=== PATIENT | female | born 1965 | race Caucasian/White ===

== ENCOUNTER 2023-06-08 10:14 | Emergency (ER) | payer BC, SELFPAY ==
[2023-06-08 10:29] VITALS: BP 124/78
[2023-06-08 11:57] VITALS: BMI 29.3
--- NOTE | 2023-06-08 12:03 | ED.GENMED ---
History of Present Illness
General
Chief Complaint: Ear Problem
Source: patient
Time Seen by Provider: 06/08/23 11:54
Travel History
Have you had any contact with someone who has COVID-19?: No
Do you have any symptoms of coronavirus? Fever > 100 degrees, chills, cough, shortness of breath, sore throat, loss of taste or smell, muscle aches, or headache?: No
History of Present Illness
History of Present Illness:
57-year-old female with past medical history of celiac disease presenting emergency department for evaluation of upper respiratory symptoms, sinus congestion, bilateral otalgia x 3 days, postnasal drip and generally feeling unwell. Patient states
that she is currently visiting her daughter here from [place] as her daughter is ill and she is trying to help take care of her. Patient denies any other known sick contacts or recent antibiotic use. She denies any fevers, chills, rigors, nausea,
vomiting or any other concerns.
Past History
Past History
ED Past Medical History: HTN and Hypothyroidism
ED Past Surgical History: Cholecystectomy
Social History
Tobacco: Non-smoker
Alcohol: None
Drug: None
Personal: Single
Living: with family
Employment: Employed
Review of Systems
Review of Systems
All Other Systems: ROS reviewed and negative except as documented in HPI and ROS
Phy Exam
Physical Exam
Physical Exam:
GENERAL: Alert , in no apparent distress
EYE: conjunctiva clear
NECK: Supple, no significant adenopathy.
ENT: o/p clr, mmm., Left TM clear and pearly, right TM difficult to visualize due to cerumen but what is visualized is clear and pearly without effusion
CARDIAC: Regular rate and rhythm
LUNGS: Clear breath sounds bilaterally, no acute respiratory distress, no wheezes/rales/rhonchi
NEUROLOGICAL: Alert and oriented
SKIN: Warm and dry, skin intact.
MUSCULOSKELETAL: well perfused.
PSYCH: Normal and appropriate interaction.
Scores
Heart Failure Risk
Heart Failure Risk Score: Not Applicable
Heart Score for Chest Pain Patients
STEMI patient?: Not applicable
Withdrawal Assessment of Alcohol
Withdrawal Assessment Completed?: Not applicable
Course
Vital Signs
Initial and Last Documented VS:
Initial Vital Signs
Temp Pulse Resp BP Pulse Ox
98.7 F 84 20 124/78 99
06/08/23 10:29 06/08/23 10:29 06/08/23 10:29 06/08/23 10:29 06/08/23 10:29
Last Documented Vital Signs
Temp Pulse Resp BP Pulse Ox
98.7 F 82 18 137/75 99
06/08/23 10:29 06/08/23 12:19 06/08/23 12:19 06/08/23 12:19 06/08/23 12:19
MDM/Problems Addressed
Differential Diagnosis Includes:
COVID, flu, other viral etiology, pneumonia, sinusitis, otitis media
MDM/Problems Addressed:
57-year-old female present emergency ferment for evaluation of 3 days of URI-like symptoms. Patient currently visiting from [place] but notes that she will be here for at least the next week to help care for her daughter. Overall I suspect a
viral etiology is most likely. I discussed this with patient and discussed [id number] measures to help with symptoms. Given that patient is currently traveling and would be unable to follow-up with her primary care physician I did prescribe
the patient amoxicillin however I advised her that if she is starting to feel better over the next couple of days to not take but if not feeling any better by Saturday to start taking the antibiotic.
*Pulse Oximetry
Patient hypoxic: no
*Critical Care Note
Total Time (30-74mins, 75-104mins- exclusive of procedures): Not Applicable
ED Attending Note
-
Portions of this chart may have been created with voice recognition software.� Occasional wrong word or��sound alike� substitutions may have occurred due to the inherent limitations of voice recognition software.
Discharge Plan
Departure
Patient Disposition: Home (Routine Discharge)
Date of Disposition: 06/08/23
Time of Disposition: 12:03
Patient with high blood pressure during this ER visit?: No
Discharge Problem:
URI (upper respiratory infection)
Instructions: Viral Upper Respiratory Infection, Adult (DC)
Prescriptions:
New
amoxicillin 500 mg tablet
500 mg PO BID 10 Days Qty: 20 0RF
pseudoephedrine HCl [Sudafed] 30 mg tablet
30 mg PO BID Qty: 15 0RF
No Action
loratadine-pseudoephedrine 240 MG/10 MG tablet extended release 24 hr
1 tab PO DAILY
Control
1 DAILY
Multivitamin
1 DAILY
Thryroid Med
DAILY
Patient Comments:
does not know name
hydrocodone-acetaminophen 1 TABLET tablet
1 tab PO Q4HPRN PRN (Reason: pain) Qty: 10 0RF
cephalexin 500 MG capsule
500 mg PO TID Qty: 20 0RF
Referrals:
NONE,* [Family Provider] -
Interventions
Interventions:
*Risk Screen - Suicide Last Done: 06/08/23 11:57
*General Assessment Last Done: 06/08/23 11:57
*Neglect/Abuse Screening Last Done: 06/08/23 11:57
ED- Fall Risk Assessment Last Done: 06/08/23 11:57
*ED COVID-19 Vaccine History Last Done: 06/08/23 11:57
*Nursing Disposition Last Done: 06/08/23 12:19
Discharge Date and Time
Discharge Date/Time: 06/08/23 12:19
--- NOTE | 2023-06-08 12:17 | EDRN ---
Reviewed discharge instructions with patient. Verbalized understanding. Ambulated with steady gait to the lobby.
[2023-06-08 12:19] VITALS: BP 137/75
== END 2023-06-08 12:19 | disposition home or self-care (01) ==
LOC: EMR 10:14
PROVIDERS: EMERGENCY PHYSICIAN Emergency Medicine
DX: J06.9 Acute upper respiratory infection, unspecified (principal); I10 Essential (primary) hypertension; E03.9 Hypothyroidism, unspecified; Z90.49 Acquired absence of other specified parts of digestive tract
CPT/HCPCS: 99282